=== PATIENT | male | born 1930 | race Caucasian/White ===

== ENCOUNTER 2017-04-26 13:05 | Emergency (ER) | payer OTHER, MEDICARE ==
[~2017-04-26] VITALS: Ht 180.3 cm; Wt 74.5 kg
[~2017-04-26 13:05] MED LIST: ACTONEL150 MG PO; Advair HFA 230/21 IH; Ascorbic Acid,Ester- PO; CHOLECALCIFEROL; Coumadin Protocol PO; Ditropan PO; Dulcolax PR; FLOMAX0.4 MG PO; Flomax PO; Folvite PO; LASIX20 MG PO; Lasix PO; Maalox, Mylanta PO; OMEPRAZOLE20 MG PO; Ocuvite PO; Proscar PO; Senokot S,Pericolace PO; TOVIAZ4 MG PO; TYLENOL REGULA325 MG PO; Theragran PO; Tylenol/Codeine #3 PO; VITAMIN D; Vitamin B-12 PO; Zocor PO
[2017-04-26 14:26] LABS: EOSINOPHIL (%) 0.3 % (0-5); HEMATOCRIT 28.6 % (38.0-50.0); IMMATURE GRANULOCYTE (%) 0.1 % (0.0-0.7); INSTRUMENT ABS NEUTROPHIL CT 5.5 K/uL; LYMPHOCYTE COUNT 0.8 K/uL (1.0-2.8); MCH 31.9 PG (29.0-34.0); MCHC 33.9 G/DL (30.0-36.0); MCV 94.1 FL (86-99); MEAN PLAT.VOLUME 9.6 uM^3 (9.0-12.4); MONOCYTE (%) 7.6 % (3-12); MONOCYTE COUNT 0.5 K/uL (0-0.8); NEUTROPHIL (%) 80.4 % (45-76); NEUTROPHIL COUNT 5.5 K/uL (1.8-6.4); PLATELET COUNT 306 K/uL (156-360); RBC DIS.WIDTH-CV 14.6 % (11.8-14.6); RBC DIS.WIDTH-SD 50.7 % (39-53); RED BLOOD COUNT 3.04 M/uL (4.00-5.50); WHITE BLOOD COUNT 6.8 K/uL (4.1-10.2)
[2017-04-26 14:35] LABS: CHLORIDE 102 mEq/L (99-109); POTASSIUM 4.6 mEq/L (3.7-5.4); SODIUM 138 mEq/L (136-147)
[2017-04-26 14:37] LABS: GLUCOSE 106 mg/dL (70-99)
[2017-04-26 14:38] LABS: ANION GAP 12 MEQ/L (2-14)
[2017-04-26 14:41] LABS: GFR ESTIMATE (CALCULATED) > 59 mL/min/; UREA NITROGEN (BUN) 28 mg/dL (9-23)
[2017-04-26 14:46] LABS: TROP-I INTERPRETATION NEGATIVE; TROPONIN-I 0.01 ng/mL (0.0-0.30)
[2017-04-26 19:40] VITALS: BP 115/50
== END 2017-04-26 19:59 ==
LOC: EME 13:05
PROVIDERS: Emergency Medicine
DX: I48.91 Unspecified atrial fibrillation (principal); J45.909 Unspecified asthma, uncomplicated; I50.9 Heart failure, unspecified; I10 Essential (primary) hypertension; Z96.652 Presence of left artificial knee joint; Z96.641 Presence of right artificial hip joint; Z79.01 Long term (current) use of anticoagulants; Z88.0 Allergy status to penicillin; Z88.8 Allergy status to other drugs, medicaments and biological substances
CPT/HCPCS: 71010; 80048; 84484; 85025; 93005; 99281; 99285

== ENCOUNTER 2017-05-30 08:13 | Inpatient (IN) | payer OTHER, MEDICARE ==
[~2017-05-30] VITALS: Ht 180.3 cm; Wt 76.9 kg
[~2017-05-30 08:13] MED LIST changes: +DULCOLAX10 MG PR; -Ditropan PO; -Dulcolax PR; -Flomax PO; -Lasix PO; +OXYBUTYNIN CHLOR5 M1 PO
[2017-05-30 09:19] LABS: EOSINOPHIL (%) 0 % (0-5); HEMATOCRIT 30.9 % (38.0-50.0); IMMATURE GRANULOCYTE (%) 0.6 % (0.0-0.7); IMMATURE GRANULOCYTE COUNT 0.1 K/uL; INSTRUMENT ABS NEUTROPHIL CT 12.6 K/uL; LYMPHOCYTE COUNT 0.7 K/uL (1.0-2.8); MCHC 33.7 G/DL (30.0-36.0); MCV 95.1 FL (86-99); MEAN PLAT.VOLUME 9.4 uM^3 (9.0-12.4); MONOCYTE COUNT 1.2 K/uL (0-0.8); NEUTROPHIL (%) 86.7 % (45-76); NEUTROPHIL COUNT 12.6 K/uL (1.8-6.4); PLATELET COUNT 327 K/uL (156-360); RBC DIS.WIDTH-SD 60.1 % (39-53); RED BLOOD COUNT 3.25 M/uL (4.00-5.50); WHITE BLOOD COUNT 14.6 K/uL (4.1-10.2)
[2017-05-30 09:24] LABS: PROTHROMBIN TIME 11.4 SEC (10.2-12.9)
[2017-05-30 09:30] LABS: CHLORIDE 100 mEq/L (99-109); POTASSIUM 3.8 mEq/L (3.7-5.4); SODIUM 134 mEq/L (136-147)
[2017-05-30 09:32] LABS: GLUCOSE 105 mg/dL (70-99)
[2017-05-30 09:33] LABS: ANION GAP 7 MEQ/L (2-14)
[2017-05-30 09:34] LABS: TOTAL BILIRUBIN 0.6 mg/dL (0.0-1.0)
[2017-05-30 09:35] LABS: ALKALINE PHOSPHATASE 186 IU/L (3-129)
[2017-05-30 09:36] LABS: GFR ESTIMATE (CALCULATED) > 59 mL/min/
[2017-05-30 09:37] LABS: UREA NITROGEN (BUN) 19 mg/dL (9-23)
[2017-05-30 09:40] LABS: TROP-I INTERPRETATION NEGATIVE; TROPONIN-I 0.06 ng/mL (0.0-0.30)
[2017-05-30 10:32] LABS: ADD MIUA? YES; BILIRUBIN NEGATIVE; BLOOD NEGATIVE; COLOR YELLOW ((YELLOW)); GLUCOSE (STRIP) NEGATIVE; KETONES NEGATIVE; LEUKOCYTES NEGATIVE; NITRITE NEGATIVE; PROTEIN (STRIP) NEGATIVE
[2017-05-30 10:42] LABS: BACTERIA NONE SEEN /HPF; EPITHELIAL CELLS RARE /HPF; MUCUS TRACE /LPF; RED BLOOD CELLS 0-5 /HPF (0-5); UCUL ADDED? NO; WHITE BLOOD CELLS 0-5 /HPF (0-5)
[2017-05-30] MEDS ORDERED: BREO ELLIPTA I1 EACH IH (11:03)
[2017-05-30] MEDS ORDERED: PLAVIX75 MG PO (11:04)
[2017-05-30] MEDS ORDERED: ERGOCALCIF50000 UNIT PO (11:04)
[2017-05-30] MEDS ORDERED: HYDROCODON-ACE1 EAC9 PO ×2 (11:07→11:15)
[2017-05-30] MEDS ORDERED: PANTOPRAZOLE SO20 MG PO (11:08)
[2017-05-30] MEDS ORDERED: VASELINE WHITE P5 G1 TP (11:10)
[2017-05-30] MEDS ORDERED: FEROSUL325 MG PO (11:11)
[2017-05-30] MEDS ORDERED: MILK OF MAGN PO (11:15)
[2017-05-30] MEDS ORDERED: MIRALAX17 GM PO (11:16)
[2017-05-30 13:40] LABS: APPEARANCE CLEAR/COLORLESS; RED CELL DILUTION 1
[2017-05-30 13:41] LABS: RED CELL AREA COUNTED 18; RED CELL COUNT 0 /MM^3 (0-1); WBC AREA COUNTED 18; WBC DILUTION 1; WHITE CELL COUNT 0 /MM^3 (0-5); WHITE CELL RAW COUNT 0
[2017-05-30 19:33] VITALS: BP 111/59
[2017-05-31] VITALS (7 sets, daily range): BP systolic 113–139; BP diastolic 56–83
[2017-05-31 06:07] LABS: HEMATOCRIT 26.3 % (38.0-50.0); MCH 31.6 PG (29.0-34.0); MCHC 32.7 G/DL (30.0-36.0); MCV 96.7 FL (86-99); MEAN PLAT.VOLUME 9.7 uM^3 (9.0-12.4); PLATELET COUNT 274 K/uL (156-360); RBC DIS.WIDTH-CV 17.4 % (11.8-14.6); RED BLOOD COUNT 2.72 M/uL (4.00-5.50); WHITE BLOOD COUNT 6.7 K/uL (4.1-10.2)
[2017-05-31 06:31] LABS: ANION GAP 5 MEQ/L (2-14); CHLORIDE 105 MEQ/L (99-109); GFR ESTIMATE (CALCULATED) > 59 mL/min/; GLUCOSE 98 mg/dL (70-99); POTASSIUM 3.7 MEQ/L (3.7-5.4); SAMPLE HEMOLYSIS CHECK 0; SAMPLE ICTERIC CHECK 0; SAMPLE LIPEMIA CHECK 0; SODIUM 137 MEQ/L (136-147); UREA NITROGEN (BUN) 17 mg/dL (9-23)
[2017-06-01 03:55] VITALS: BP 122/75
[2017-06-01 05:55] LABS: EOSINOPHIL (%) 1.6 % (0-5); EOSINOPHIL COUNT 0.1 K/uL (0-0.3); HEMATOCRIT 29.9 % (38.0-50.0); IMMATURE GRANULOCYTE (%) 0.2 % (0.0-0.7); INSTRUMENT ABS NEUTROPHIL CT 3.7 K/uL; LYMPHOCYTE COUNT 1.3 K/uL (1.0-2.8); MCH 33.2 PG (29.0-34.0); MCHC 34.1 G/DL (30.0-36.0); MCV 97.4 FL (86-99); MONOCYTE (%) 12.1 % (3-12); MONOCYTE COUNT 0.7 K/uL (0-0.8); NEUTROPHIL COUNT 3.7 K/uL (1.8-6.4); PLATELET COUNT 265 K/uL (156-360); RBC DIS.WIDTH-CV 17.3 % (11.8-14.6); RBC DIS.WIDTH-SD 62.3 % (39-53); RED BLOOD COUNT 3.07 M/uL (4.00-5.50); WHITE BLOOD COUNT 5.8 K/uL (4.1-10.2)
[2017-06-01 06:43] LABS: ANION GAP 6 MEQ/L (2-14); CHLORIDE 104 MEQ/L (99-109); GFR ESTIMATE (CALCULATED) > 59 mL/min/; GLUCOSE 94 mg/dL (70-99); POTASSIUM 3.7 MEQ/L (3.7-5.4); SAMPLE HEMOLYSIS CHECK 0; SAMPLE ICTERIC CHECK 0; SAMPLE LIPEMIA CHECK 0; SODIUM 137 MEQ/L (136-147); UREA NITROGEN (BUN) 12 mg/dL (9-23)
[2017-06-01 08:10] VITALS: BP 162/85
== END 2017-06-01 15:31 | DRG 948 ==
LOC: EME 08:13 → 5SOUTH 14:07 → EDOF 14:07 → ENRESERV 14:09 → EDOF 14:15 → ENRESERV 14:54 → CANRESERV 16:28 → ENRESERV 17:12 → 5SOUTH 19:18
PROVIDERS: Emergency Medicine; Internal Medicine
PROC: 009U3ZX Drainage of Spinal Canal, Percutaneous Approach, Diagnostic (ICD-10-PCS; principal; 2017-05-30)
DX: R41.82 Altered mental status, unspecified (principal); R50.9 Fever, unspecified; E86.0 Dehydration; E87.1 Hypo-osmolality and hyponatremia; I95.9 Hypotension, unspecified; R00.0 Tachycardia, unspecified; M54.2 Cervicalgia; M79.89 Other specified soft tissue disorders; M71.21 Synovial cyst of popliteal space [Baker], right knee; D64.9 Anemia, unspecified; I48.0 Paroxysmal atrial fibrillation; E78.5 Hyperlipidemia, unspecified; J44.9 Chronic obstructive pulmonary disease, unspecified; I11.0 Hypertensive heart disease with heart failure; I50.9 Heart failure, unspecified; M06.9 Rheumatoid arthritis, unspecified; N40.0 Benign prostatic hyperplasia without lower urinary tract symptoms; N32.81 Overactive bladder; Z96.652 Presence of left artificial knee joint; Z96.641 Presence of right artificial hip joint; Z79.01 Long term (current) use of anticoagulants; Z88.0 Allergy status to penicillin; Z88.6 Allergy status to analgesic agent
CPT/HCPCS: 70450; 71010; 72125; 80048; 80053; 81003; 82945; 83605; 84157; 84484; 85025; 85027; 85610; 85730; 87040; 87070; 87205; 89051; 93005; 93971; 94640; 94640 76; 99281; 99285; G0378; J1650; J7030